=== PATIENT | female | born 1985 | race African-American/Black ===

== ENCOUNTER 2016-09-18 11:07 | Inpatient (IN) | payer MEDICAID ==
[2016-09-18 11:28] LABS: AUTOMATED BASOPHIL 0.8 % (0-2); AUTOMATED EOSINOPHIL 0.8 % (0-5); AUTOMATED LYMPH 29.8 % (17-44); AUTOMATED MONOCYTE 5.4 % (3-10); AUTOMATED NEUTROPHIL 63.2 % (45-76); MPV 9.3 fL (7.4-10.4)
[2016-09-18] MEDS ORDERED: HYDROmorphone 1 MG INJECTION IV ONE ×3 (11:35→15:36)
[2016-09-18] MEDS ORDERED: SODIUM CHLORIDE 0.9% 3 ML FLUSH FLUSH PRN (11:35)
[2016-09-18] MEDS ORDERED: ONDANSETRON HCL 4 MG/2 ML VIAL IV ONE ×2 (11:35→14:58)
--- NOTE | 2016-09-18 11:39 | EDPRACDOC ---
- General Information Chief Complaint: Abdominal Pain Stated Complaint: ABD PAIN & BACK PAIN VOMITING DIARRHEA Time Seen by Provider: 09/18/16 11:30 Information Source: Patient Mode Of Arrival: Car Home Medications: Home Medications No Home Medications 09/18/16 Allergies/Adverse Reactions: Allergies Allergy/AdvReac Type Severity Reaction Status Date / Time No Known Allergies Allergy Verified 09/18/16 11:13 - History of Present Illness Onset: 1 DAY HPI: PT PRESENTS TO ED WITH EPIGASTRIC RUQ PAIN RADIATES TO RIGHT BACK AND SHOULDER STATES MOVES AROUND AND HAS N/V WITH FEW EPISODES OF DIARRHEA. Pain Location: Reports: Epigastric, RUQ, Flank (RT) Pain Context: Reports: Spontaneous Pain Severity: Moderate Pain Quality: Reports: Aching, Sharp, Stabbing Pain Radiation: Reports: Back (RT) Last Menstrual Period: 09/04/2016 : No Blood Type: Unknown Modifying Factors: improves with: Position, Movement, Other (LYING FLAT) Female Associated Signs & Symptoms: Reports: Nausea, Vomiting, Diarrhea Oral Intake: Decreased Urinary Output: Normal ED Past Medical History - History Reviewed Yes Nurses notes reviewed and agree except as marked Travel Outside of [place] in the Last 3 Months?: No No Past Medical History: Yes Patient has no past medical history - Patient Medical History Psychological History: Denies: Depression Systemic History: Denies: Cancer Additional Past Medical History: MORBID OBESITY Surgical History: Denies: Hysterectomy - Social Medical History Smoking Status: Never smoker ETOH: None Substance Abuse: None Lives With: Other Lives In: Home EDM Review of Systems - Review of Systems ROS Negative Except as Marked: Yes All systems reviewed and were negative except as marked Constitutional: No Symptoms Reported. negative: Fever, Chills, Weakness, Fatigue, Loss of Appetite Eyes: No Symptoms Reported. negative: Redness, Blurred Vision, Double Vision, Discharge, Pain, Light Sensitive, Photophobia Ears: No Symptoms Reported. negative: Pain, Hearing Loss, Drainage, Ear Pulling Throat: No Symptoms Reported. negative: Pain, Swelling Nose: No Symptoms Reported. negative: Congestion, Bleeding, Discharge, Injection, Swelling, Deformity, Ecchymosis, Tender, Abrasion, Laceration Mouth: No Symptoms Reported. negative: Pain, Drooling Respiratory: No Symptoms Reported. negative: Cough, Brassy Cough, Barky Cough, Shortness of Breath, Wheezing, Hemoptysis Cardiovascular: No Symptoms Reported. negative: Chest Pain, Palpitations, Syncope, Edema, Orthopnea, PND, Skin Mottling, Cyanosis Gastrointestinal: Diarrhea, Nausea, Pain, Vomiting. negative: Constipation, Formula Intolerance, Melena Genitourinary: No Symptoms Reported. negative: Dysuria, Hematuria, Frequency, Discharge, Bleeding, Testicular Pain, Neurological: No Symptoms Reported. negative: Headache, Dizziness, Seizure, Numbness, Weakness, Speech Difficulty, Gait Difficulty Musculoskeletal: No Symptoms Reported. negative: Neck, Chestwall, Ribs, Back, Shoulder, Arm, Elbow, Forearm, Wrist, Hand, Pelvis, Hip, Femur, Knee, Leg, Ankle , Foot Integumentary: No Symptoms Reported. negative: Itching, Rash, Bruising, Wound Allergic/Immunologic: No Symptoms Reported. negative: Hives, Itching Hematologic: No Symptoms Reported. negative: Lymphadenopathy, Easy Bruising, Easy Bleeding Endocrine: No Symptoms Reported. negative: Weight Gain, Weight Loss Psychiatric: No Symptoms Reported. negative: Anxiety, Depression, Hallucinations, Insomnia, Suicidal - Physical Exam Constitutional: Alert (Awake), No apparent distress Oriented to: Time, Person, Place Last recorded Vital Signs: Last Vital Signs Temp 98.4 F 09/18/16 11:11 Pulse 83 09/18/16 16:55 Resp 20 09/18/16 16:55 BP 143/85 09/18/16 16:55 Pulse Ox 94 09/18/16 16:55 Oxygen Pulse Oxygen Saturation 94 O2 Device Room Air Oxygen Flow Rate Fraction of Inspired Oxygen ( FIO2) - HEENT Head: Normal ( normocephalic) Eye Exam: Normal (PERRL, EOMI, Sclera white) Oropharynx: Normal (Pharynx:Moist without exudate,Gums-no swelling) Tympanic Membrane: Normal ENT EAC: Normal TMJ: Normal Nose: No Symptoms Reported (septum midline) Neck: Normal (FROM, trachea at midline) - Respiratory/Cardiovascular Respiratory: Normal - CTA (BBS clear to auscultation without adventitious sounds ) Cardiovascular: Normal (RRR without murmur, gallop or rub) - GI Auscultation: Normal (NABS) Palpation: Normal (Soft,No rebound or guarding, non distended) Tenderness: Moderate, RUQ, Epigastric Donald's Sign: Negative - Bladder: Normal - Musculoskeletal Back: Normal (Non-Tender) Extremities: Normal (Normal tone, Pulses 2+ No cyanosis or edema, FROM) - Integumentary Skin: Normal, Warm, Dry Lymphatics: Normal (no adenopathy) - Neurologic Memory Impaired: Normal Motor Function: Normal (Normal tone, Pulses 2+ No cyanosis or edema, FROM) Cranial Nerve: Normal (CN II-X11 intact sensation, strength 5/5) Cerebellar: Normal Mood Description: Normal Perception: Normal - Differential Diagnosis Cholecystitis, Cholelithiasis, Colic, Constipation, PUD, Urolithiasis, UTI - Results 09/18/16 11:14 09/18/16 11:14 WBC 6.4 xk/uL (3.8-10.8) 09/18/16 11:14 RBC 4.74 xM/uL (4.20-5.40) 09/18/16 11:14 Hgb 12.0 g/dL (12.0-16.0) 09/18/16 11:14 Hct 36.9 % (36-47) 09/18/16 11:14 MCV 78 fL (81-99) L 09/18/16 11:14 MCH 25.4 pg (27-32) L 09/18/16 11:14 MCHC 32.5 g/dl (33-36) L 09/18/16 11:14 RDW 15.1 % (11.5-14.5) H 09/18/16 11:14 Plt Count 246 xk/uL (130-400) 09/18/16 11:14 MPV 9.3 fL (7.4-10.4) 09/18/16 11:14 Neut % (Auto) 63.2 % (45-76) 09/18/16 11:14 Lymph % (Auto) 29.8 % (17-44) 09/18/16 11:14 Ferry % (Auto) 5.4 % (3-10) 09/18/16 11:14 Eos % (Auto) 0.8 % (0-5) 09/18/16 11:14 Baso % (Auto) 0.8 % (0-2) 09/18/16 11:14 Absolute Neuts (auto) 4.03 xk/uL (1.7-8.2) 09/18/16 11:14 Absolute Lymphs (auto) 1.86 xk/uL (0.65-4.75) 09/18/16 11:14 Sodium 135 mEq/L (137-146) L 09/18/16 11:14 Potassium 4.6 mEq/L (3.5-5.1) 09/18/16 11:14 Chloride 100 mEq/L (98-107) 09/18/16 11:14 Carbon Dioxide 23 mMOL/L (22-33) 09/18/16 11:14 Anion Gap 17 mEq/L (8-16) H 09/18/16 11:14 BUN 10 MG/DL (7-17) 09/18/16 11:14 Creatinine 0.70 MG/DL (0.52-1.04) 09/18/16 11:14 Estimated GFR (MDRD) > 60 mL/min (>=60) 09/18/16 11:14 Glucose 290 MG/DL (70-99) H 09/18/16 11:14 Calculated Osmolality 270 MOs/Kg (270-290) 09/18/16 11:14 Calcium 8.9 MG/DL (8.4-10.2) 09/18/16 11:14 Total Bilirubin 0.4 MG/DL (0.2-1.3) 09/18/16 11:14 AST 33 IU/L (14-36) 09/18/16 11:14 ALT 56 IU/L (9-52) H 09/18/16 11:14 Alkaline Phosphatase 79 IU/L (38-126) 09/18/16 11:14 Total Protein 7.8 G/DL (6.3-8.2) 09/18/16 11:14 Albumin 4.0 G/DL (3.5-5.0) 09/18/16 11:14 Lipase 69 U/L (23-300) 09/18/16 11:24 Urine Color Yellow 09/18/16 12:25 Urine Clarity Clear 09/18/16 12:25 Urine pH 6.0 (5.0-8.0) 09/18/16 12:25 Ur Specific Imperial 1.010 (1.003-1.035) 09/18/16 12:25 Urine Protein Neg (NEG/TRACE) 09/18/16 12:25 Urine Glucose (UA) 3+ (NEGATIVE) H 09/18/16 12:25 Urine Ketones Neg (NEGATIVE) 09/18/16 12:25 Urine Occult Blood Neg (NEG/TRACE) 09/18/16 12:25 Urine Nitrite Neg (NEGATIVE) 09/18/16 12:25 Urine Bilirubin Neg (NEGATIVE) 09/18/16 12:25 Urine Urobilinogen 0.2 MG/DL (0-1) 09/18/16 12:25 Ur Leukocyte Esterase Neg (NEGATIVE) 09/18/16 12:25 Urine RBC 0-2 (0-5) 09/18/16 12:25 Urine WBC 2-5 (0-5) 09/18/16 12:25 Ur Epithelial Cells 1+ 09/18/16 12:25 Urine Bacteria Few (NEG/FEW) 09/18/16 12:25 Urine Test Neg (NEGATIVE) 09/18/16 12:25 Lab Results 09/18/16 09/18/16 09/18/16 12:25 12:25 11:24 WBC RBC Hgb Hct MCV MCH MCHC RDW Plt Count MPV Neut % (Auto) Lymph % (Auto) Ferry % (Auto) Eos % (Auto) Baso % (Auto) Absolute Neuts (auto) Absolute Lymphs (auto) Sodium Potassium Chloride Carbon Dioxide Anion Gap BUN Creatinine Estimated GFR (MDRD) Glucose Calculated Osmolality Calcium Total Bilirubin AST ALT Alkaline Phosphatase Total Protein Albumin Lipase 69 Urine Color Yellow Urine Clarity Clear Urine pH 6.0 Ur Specific Imperial 1.010 Urine Protein Neg Urine Glucose (UA) 3+ H Urine Ketones Neg Urine Occult Blood Neg Urine Nitrite Neg Urine Bilirubin Neg Urine Urobilinogen 0.2 Ur Leukocyte Esterase Neg Urine RBC 0-2 Urine WBC 2-5 Ur Epithelial Cells 1+ Urine Bacteria Few Urine Test Neg 09/18/16 09/18/16 11:14 11:14 WBC 6.4 RBC 4.74 Hgb 12.0 Hct 36.9 MCV 78 L MCH 25.4 L MCHC 32.5 L RDW 15.1 H Plt Count 246 MPV 9.3 Neut % (Auto) 63.2 Lymph % (Auto) 29.8 Ferry % (Auto) 5.4 Eos % (Auto) 0.8 Baso % (Auto) 0.8 Absolute Neuts (auto) 4.03 Absolute Lymphs (auto) 1.86 Sodium 135 L Potassium 4.6 Chloride 100 Carbon Dioxide 23 Anion Gap 17 H BUN 10 Creatinine 0.70 Estimated GFR (MDRD) > 60 Glucose 290 H Calculated Osmolality 270 Calcium 8.9 Total Bilirubin 0.4 AST 33 ALT 56 H Alkaline Phosphatase 79 Total Protein 7.8 Albumin 4.0 Lipase Urine Color Urine Clarity Urine pH Ur Specific Imperial Urine Protein Urine Glucose (UA) Urine Ketones Urine Occult Blood Urine Nitrite Urine Bilirubin Urine Urobilinogen Ur Leukocyte Esterase Urine RBC Urine WBC Ur Epithelial Cells Urine Bacteria Urine Test - Departure Disposition: Home Condition: Stable Final Diagnosis: Acute cholecystitis Cholelithiasis Qualifiers: Cholelithiasis location: gallbladder Cholecystitis presence: with cholecystitis Cholecystitis acuity: acute Biliary obstruction: without biliary obstruction Qualified Code(s): K80.00 - Calculus of gallbladder with acute cholecystitis without obstruction Instructions: Acute Abdominal Pain (ED), Cholecystitis (ED) Education/Counseling Given To: Patient Education/Counseling Given Regarding: Diagnosis, Treatment, Prognosis, Follow Up Referrals: None,No Provider [Primary Care Provider] - One Week Decision to Admit Time: 17:25 Decision to admit date: 09/18/16 Decision to admit: from ED - Physician Consulted Surgery Time Called: 17:25 Provider Called: Santino Ratliff (WILL ADMIT)
[2016-09-18] MEDS ORDERED: NS 1,000 ML IV ONE ×3 (11:43→17:49)
[2016-09-18 11:45] LABS: BLOOD UREA NITROGEN 10 MG/DL (7-17); CALCIUM 8.9 MG/DL (8.4-10.2); CALCULATED OSMOLALITY 270 MOs/Kg (270-290); CHLORIDE 100 mEq/L (98-107); GLUCOSE 290 MG/DL (70-99); SODIUM LEVEL 135 mEq/L (137-146); TOTAL PROTEIN 7.8 G/DL (6.3-8.2)
[2016-09-18] MEDS ORDERED: Pharmacy Review for Metformin - IV Contrast Given SCH (12:00)
[2016-09-18 12:39] LABS: RBC/URINE 0-2 (0-5)
[2016-09-18 12:42] LABS: LEUKOCYTES/URINE NEG (NEGATIVE); NITRITE/URINE NEG (NEGATIVE); URINE OCCULT BLOOD NEG (NEG/TRACE)
--- NOTE | 2016-09-18 15:20 | DIRPT ---
CLINICAL DATA: 31-year-old female with right upper quadrant/epigastric pain radiating into the back accompanied by nausea and vomiting EXAM: CT ABDOMEN AND PELVIS WITH CONTRAST TECHNIQUE: Multidetector CT imaging of the abdomen and pelvis was performed using the standard protocol following bolus administration of intravenous contrast. CONTRAST: 100 mL Isovue 370 COMPARISON: None. FINDINGS: Lower Chest: 5 mm partially calcified granuloma in the left lower lobe. Otherwise, the visualized lower lungs are clear. Visualized cardiac structures are within normal limits for size. Normal distal thoracic esophagus. Abdomen: Unremarkable CT appearance of the stomach, duodenum, spleen, adrenal glands and pancreas. Normal hepatic contour morphology. No discrete lesion. Diffuse low attenuation of the hepatic parenchyma consistent with hepatic steatosis. There is significant circumferential gallbladder wall thickening measuring up to 1.4 cm. No definite radiopaque cholelithiasis. No intra or extrahepatic biliary ductal dilatation. Unremarkable appearance of the bilateral kidneys. No focal solid lesion, hydronephrosis or nephrolithiasis. 1.6 cm simple cyst in the left upper pole. No evidence of obstruction or focal bowel wall thickening. Normal appendix in the right lower quadrant. The terminal ileum is unremarkable. No free fluid or suspicious adenopathy. Pelvis: Unremarkable uterus, at adnexa and bladder. Bones/Soft Tissues: Small fat containing midline ventral hernia superior to the umbilicus. No acute fracture or aggressive appearing lytic or blastic osseous lesion. Vascular: No significant atherosclerotic vascular disease, aneurysmal dilatation or acute abnormality. IMPRESSION: 1. Diffuse gallbladder wall thickening without definitive radiopaque cholelithiasis. Consider further evaluation with right upper quadrant ultrasound to evaluate for cholelithiasis and cholecystitis. 2. Hepatic steatosis. 3. Small omental fat containing midline ventral abdominal hernia superior to the umbilicus. 4. Small calcified granuloma in the left lower lobe. 5. Small left renal cyst. Electronically Signed By: Riley Galarza M.D. On: 09/18/2016 15:17
--- NOTE | 2016-09-18 17:05 | DIRPT ---
CLINICAL DATA: Abdominal pain since last night. EXAM: US ABDOMEN LIMITED - RIGHT UPPER QUADRANT COMPARISON: CT of the abdomen dated 09/18/2016 FINDINGS: Gallbladder: There are multiple mobile shadowing gallbladder calculi, the largest of which measures 1.2 cm. There is a trace of pericholecystic fluid. There is gallbladder wall thickening to 4.5 mm. Sonographic Donald's sign was reported as negative. Common bile duct: Diameter: 4.2 mm. Liver: No focal lesion identified. There is diffusely increased echogenicity of the liver, usually seen with hepatic steatosis. IMPRESSION: Cholelithiasis with associated signs of acute cholecystitis, such as gallbladder wall thickening and small amount of pericholecystic fluid. Hepatic steatosis. Electronically Signed By: Aniket Quan M.D. On: 09/18/2016 17:02
[2016-09-18] MEDS ORDERED: CEFOXITIN 2 GM in D5W 100 ML IV ONE (17:49)
[2016-09-18] MEDS ORDERED: SIMETHICONE 80 MG TAB PO PRN (17:51)
[2016-09-18] MEDS ORDERED: ONDANSETRON HCL 4 MG/2 ML VIAL IV PRN (17:51)
[2016-09-18] MEDS ORDERED: ACETAMINOPHEN 325 MG/TAB TABLET PO PRN (17:51)
[2016-09-18] MEDS ORDERED: MORPHINE 2 MG/ML INJECTION IV PRN ×4 (17:52)
[2016-09-18] MEDS ORDERED: GLUCOSE (ORAL GEL) 15 GM TUBE PO PRN ×2 (17:52→17:56)
[2016-09-18] MEDS ORDERED: GLUCAGON 1 MG VIAL SQ PRN ×2 (17:52→17:56)
[2016-09-18] MEDS ORDERED: DEXTROSE 25 GM/50 ML PFS IV PRN ×2 (17:52→17:56)
--- NOTE | 2016-09-18 18:13 | HISTPHYS ---
- Chief Complaint RUQ pain - History of Present Illness 31 YO Female who presented with increased abdominal pain. No alleviating factors noted. this was accompanied by N/V. The pain was an 8/10 and stabbing. Came top ER and work-up revealed acute cholecystitis. - Medical History Cardiac History: Reports: No Significant History Respiratory History: Reports: No Significant History GI/ History: Reports: No Significant History Musculoskeletal History: Reports: No Significant History Systemic History: Reports: No Significant History. Denies: Cancer Neurological History: Reports: No Significant History Psychological History: Denies: Depression - Surgical History Denies: Hysterectomy - Medictions/Allergies Allergies No Known Allergies Allergy (Verified 09/18/16 11:13) Current Medication List: Reviewed Home Medications No Home Medications 09/18/16 - Family History Reports: Hypertension - Social History Travel Outside of [place] in the Last 3 Months?: No Smoking Status: Never smoker Social History: Denies: Amphetamine Use, Alcohol Use, Barbiturate Use, Benzodiazipine Use, Cocaine Use, Heroin Use, Marijuana Use, Methadone Use, MDMA (Ecstasy) Use, Substance Use Disorder - Review of Systems Constitutional: Loss of Appetite. negative: Chills, Fever Eyes: negative: Photophobia, Vision Loss Ears: negative: Hearing Loss, Tinnitus Nose: negative: Discharge, Deformity Throat/Neck: negative: Pain, Masses, Hoarseness Respiratory: negative: Cough, Hemoptysis, Shortness of Breath, Wheezing Cardiovascular: negative: Chest Pain, Orthopnea, Palpitations Gastrointestinal: Nausea, Vomiting, Abdominal Pain. negative: Diarrhea, Melena , Hematochezia Genitourinary: negative: Dysuria, Hematuria Neurological: negative: Dizziness, Headache, Seizure Musculoskeletal:: negative: Joint Pain, Muscle Pain Integumentary: negative: Itching, Rash, Wound Allergic/Immunologic: negative: Hives, Itching Hematologic: negative: Lymphadenopathy, Easy Bruising, Easy Bleeding Psychiatric: negative: Anxiety, Depression - Physical Exam Vital Signs: Initial Vitals Temperature 98.4 F 09/18/16 11:11 Pulse Rate 87 09/18/16 11:11 Respiratory Rate 20 09/18/16 11:11 Blood Pressure 183/86 H 09/18/16 11:11 Pulse Oxygen Saturation 96 09/18/16 11:11 Constitutional: No apparent distress, Alert. negative: Confused, Distress Oriented to: Time, Person, Place - HEENT Head: Normal. negative: Laceration, Swelling Eye: negative: Pale Conjunctiva, Scleral Icterus Nose: negative: Discharge, Deformity Respiratory: negative: Rales, Rhonchi, Wheezes Cardiovascular: Normal. negative: Bradycardia, Tachycardia, Irregular - GI Auscultation: Normal Palpation: Normal. negative: Enlarged liver, Fluid Wave Tenderness: Moderate, RUQ, Epigastric. negative: Guarding, Rebound, Rigidity Donald's Sign: Positive - Musculoskeletal Back: negative: Abrasion, Ecchymosis, CVA Tenderness Extremities: negative: Calf Tenderness, Clubbing, Cyanosis, Edema - Integumentary Skin: Warm Lymphatics: negative: Adenopathy, Lymphangitis - Neurologic Cranial Nerve: Normal (CN II-XII intact sensation, strength 5/5) - Assessment/Plan (1) Epigastric abdominal pain R10.13 - EPIGASTRIC PAIN Acute Present on Admission: Yes (2) RUQ abdominal pain R10.11 - RIGHT UPPER QUADRANT PAIN Acute Present on Admission: Yes (3) Acute cholecystitis K81.0 - ACUTE CHOLECYSTITIS Acute Present on Admission: Yes (4) Cholelithiasis K80.20 - CALCULUS OF GALLBLADDER W/O CHOLECYSTITIS W/O OBSTRUCTION Acute Present on Admission: Yes gallbladder with cholecystitis C acute C without biliary obstruction K80.00 - Calculus of gallbladder with acute cholecystitis without obstruction (5) Hyperglycemia R73.9 - HYPERGLYCEMIA, UNSPECIFIED Acute Present on Admission: Yes Plan: Will need admission for IV antibiotics. She will need to have this process cool down prior to going ahead with surgery. Will also obtain Medical consult to further evaluate her hyperglycemia
[2016-09-18] MEDS: SODIUM CHLORIDE 0.9% 3 ML FLUSH FLUSH SCH (19:02)
[2016-09-18 19:23] VITALS: BMI 46.2
[2016-09-18] MEDS ORDERED: Vaccine Screening Complete SCH (20:00)
--- NOTE | 2016-09-18 20:05 | HIMCONSMED ---
Consultation Date: 09/18/16 Requesting Physician: Santino Ratliff Consulting Doctor: Flo Guan Consult Reason: Medical Management ATTENDING: Dr. Ratliff PRIMARY CARE PROVIDER: Dr. Lewis HPI: The patient is a delightful 31 yo woman who presents with abdominal pain. Onset: last night. Duration: intermittent. Location: Right abdomen. Radiation: to back. Character: 10/10. Cramping pain then to dull ache. Alleviated by: Nothing. Exacerbated by: Nothing. Associated Symptoms: Nausea and vomiting. Diarrhea. Abdominal pain. No constipation or bloody stool. No fever or chills. Has noticed polyuria and polydipsia. Treatments: none at home except usual medications. Chief Complaint: abdominal pain - Past Medical and Surgical History Patient reports no significant medial problems. Allergies No Known Allergies Allergy (Verified 09/18/16 11:13) Home Medications No Home Medications 09/18/16 - Social History Travel Outside of [place] in the Last 3 Months?: No Smoking Status: Never smoker Social History: Denies: Alcohol Use, Substance Use Disorder - Review of Systems GENERAL: No Fever, chills, or diaphoresis. Positive for fatigue/malaise. HEENT: No nasal discharge or bleeding. No throat pain or swelling. No eye pain or eye redness. RESPIRATORY: No cough, wheezing, or shortness of breath. CARDIOVASCULAR: No chest pain or palpitations. GI: Nausea and vomiting. Diarrhea. Abdominal pain. No constipation or bloody stool. NEUROLOGICAL: No headache or focal weakness. INTEGUMENT: no rashes, itching, or lesions. LYMPHATIC SYSTEM: no lymph node swelling or pain. MUSCULOSKELETAL: no pain or joint swelling. GENITOURINARY: No dysuria or hematuria. ENDOCRINE: Has noticed polyuria and polydipsia. HEME: No chronic anemia, bleeding, or easy bruising. - Physical Exam Vital Signs: Initial Vitals Temperature 98.4 F 09/18/16 11:11 Pulse Rate 87 09/18/16 11:11 Respiratory Rate 20 09/18/16 11:11 Blood Pressure 183/86 H 09/18/16 11:11 Pulse Oxygen Saturation 96 09/18/16 11:11 Vital Signs - 24 hr 09/18/16 09/18/16 09/18/16 11:11 13:46 16:55 Temperature 98.4 F Pulse Rate 87 90 83 Respiratory 20 18 20 Rate Blood Pressure 183/86 H 164/77 143/85 Pulse Oxygen 96 95 94 Saturation 09/18/16 09/18/16 18:39 18:55 Temperature 96.9 F L Pulse Rate 84 77 Respiratory 18 20 Rate Blood Pressure 176/94 162/98 Pulse Oxygen 96 92 Saturation Weight: 122 kg Height: 5 feet 4 inches BMI: 46.2 - Other Exam Other Exam Findings: GENERAL: Ill-appearing, well nourished, in acute distress. HEENT: Normocephalic, atraumatic; pupils equal and round. Nares patent, without discharge or bleeding. No oropharyngeal lesions or erythema. Mucous membranes are dry. NECK: is supple, no masses, trachea midline. Acanthosis nigricans noted. RESPIRATORY: Clear to auscultation bilaterally. Chest wall movements are symmetric. No use of accessory muscles to breathe. No wheezing, rales, rhonchi. CARDIOVASCULAR: Normal S1, S2. No murmurs, rubs, or gallops. PMI non-displaced. Carotids: no carotid bruits. No bradycardia or tachycardia. DP pulses 2+ bilaterally. GI: soft, non-distended, normal active bowel sounds. No hepatosplenomegaly. Tenderness in right upper and lower quadrants. INTEGUMENT: Clean, dry, and intact. No rashes. No lesions. MUSCULOSKELETAL: Moving all extremities. No cyanosis. No clubbing. Edema: none bilaterally. NEUROLOGICAL: Cranial nerves 2-12 grossly intact. Motor 5/5 throughout. Reflexes : 2+ bilaterally. Babinski: toes downgoing bilaterally. Intact Finger to nose. Sensory grossly intact to light touch. Intact rapid alternating movements bilaterally. No pronator drift. PSYCHIATRIC: Fully oriented. Normal and appropriate affect. LYMPHATIC: No cervical lymphadenopathy. No supraclavicular lymphadenopathy. - Lab Results Laboratory Results - last 24 hr 09/18/16 09/18/16 09/18/16 11:14 11:14 11:14 WBC 6.4 RBC 4.74 Hgb 12.0 Hct 36.9 MCV 78 L MCH 25.4 L MCHC 32.5 L RDW 15.1 H Plt Count 246 MPV 9.3 Neut % (Auto) 63.2 Lymph % (Auto) 29.8 Parker % (Auto) 5.4 Eos % (Auto) 0.8 Baso % (Auto) 0.8 Absolute Neuts (auto) 4.03 Absolute Lymphs (auto) 1.86 Sodium 135 L Potassium 4.6 Chloride 100 Carbon Dioxide 23 Anion Gap 17 H BUN 10 Creatinine 0.70 Estimated GFR (MDRD) > 60 Glucose 290 H Hemoglobin A1c 7.8 H Calculated Osmolality 270 Calcium 8.9 Total Bilirubin 0.4 AST 33 ALT 56 H Alkaline Phosphatase 79 Total Protein 7.8 Albumin 4.0 Lipase Urine Color Urine Clarity Urine pH Ur Specific [place] Urine Protein Urine Glucose (UA) Urine Ketones Urine Occult Blood Urine Nitrite Urine Bilirubin Urine Urobilinogen Ur Leukocyte Esterase Urine RBC Urine WBC Ur Epithelial Cells Urine Bacteria Urine Test 09/18/16 09/18/16 09/18/16 11:24 12:25 12:25 WBC RBC Hgb Hct MCV MCH MCHC RDW Plt Count MPV Neut % (Auto) Lymph % (Auto) Parker % (Auto) Eos % (Auto) Baso % (Auto) Absolute Neuts (auto) Absolute Lymphs (auto) Sodium Potassium Chloride Carbon Dioxide Anion Gap BUN Creatinine Estimated GFR (MDRD) Glucose Hemoglobin A1c Calculated Osmolality Calcium Total Bilirubin AST ALT Alkaline Phosphatase Total Protein Albumin Lipase 69 Urine Color Yellow Urine Clarity Clear Urine pH 6.0 Ur Specific [place] 1.010 Urine Protein Neg Urine Glucose (UA) 3+ H Urine Ketones Neg Urine Occult Blood Neg Urine Nitrite Neg Urine Bilirubin Neg Urine Urobilinogen 0.2 Ur Leukocyte Esterase Neg Urine RBC 0-2 Urine WBC 2-5 Ur Epithelial Cells 1+ Urine Bacteria Few Urine Test Neg - Diagnostic Findings CT abdomen/pelvis, viewed personally: EXAM: CT ABDOMEN AND PELVIS WITH CONTRAST TECHNIQUE: Multidetector CT imaging of the abdomen and pelvis was performed using the standard protocol following bolus administration of intravenous contrast. CONTRAST: 100 mL Isovue 370 COMPARISON: None. FINDINGS: Lower Chest: 5 mm partially calcified granuloma in the left lower lobe. Otherwise, the visualized lower lungs are clear. Visualized cardiac structures are within normal limits for size. Normal distal thoracic esophagus. Abdomen: Unremarkable CT appearance of the stomach, duodenum, spleen, adrenal glands and pancreas. Normal hepatic contour morphology. No discrete lesion. Diffuse low attenuation of the hepatic parenchyma consistent with hepatic steatosis. There is significant circumferential gallbladder wall thickening measuring up to 1.4 cm. No definite radiopaque cholelithiasis. No intra or extrahepatic biliary ductal dilatation. Unremarkable appearance of the bilateral kidneys. No focal solid lesion, hydronephrosis or nephrolithiasis. 1.6 cm simple cyst in the left upper pole. No evidence of obstruction or focal bowel wall thickening. Normal appendix in the right lower quadrant. The terminal ileum is unremarkable. No free fluid or suspicious adenopathy. Pelvis: Unremarkable uterus, at adnexa and bladder. Bones/Soft Tissues: Small fat containing midline ventral hernia superior to the umbilicus. No acute fracture or aggressive appearing lytic or blastic osseous lesion. Vascular: No significant atherosclerotic vascular disease, aneurysmal dilatation or acute abnormality. IMPRESSION: 1. Diffuse gallbladder wall thickening without definitive radiopaque cholelithiasis. Consider further evaluation with right upper quadrant ultrasound to evaluate for cholelithiasis and cholecystitis. 2. Hepatic steatosis. 3. Small omental fat containing midline ventral abdominal hernia superior to the umbilicus. 4. Small calcified granuloma in the left lower lobe. 5. Small left renal cyst. Ultrasound abdomen: EXAM: US ABDOMEN LIMITED - RIGHT UPPER QUADRANT COMPARISON: CT of the abdomen dated 09/18/2016 FINDINGS: Gallbladder: There are multiple mobile shadowing gallbladder calculi, the largest of which measures 1.2 cm. There is a trace of pericholecystic fluid. There is gallbladder wall thickening to 4.5 mm. Sonographic Donald's sign was reported as negative. Common bile duct: Diameter: 4.2 mm. Liver: No focal lesion identified. There is diffusely increased echogenicity of the liver, usually seen with hepatic steatosis. IMPRESSION: Cholelithiasis with associated signs of acute cholecystitis, such as gallbladder wall thickening and small amount of pericholecystic fluid. Hepatic steatosis. - Assessment (1) Acute cholecystitis K81.0 - ACUTE CHOLECYSTITIS Acute Present on Admission: Yes Minimal risk for surgery due primarily to new onset diabetes. Plan: Agree with plan to move forward with surgery. Management per Dr. Ratliff. 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 Plan: Teaching regarding diagnosis. Demonstrate use of glucometer then allow patient to obtain sample herself. Sliding scale insulin and FSBS check q 6hrs. After she is recovering well from cholecystectomy, consider starting metformin. (3) Elevated blood pressure reading R03.0 - ELEVATED BLOOD-PRESSURE READING, W/O DIAGNOSIS OF HTN Acute Present on Admission: Yes May be due to pain. Plan: Monitor blood pressures. Follow up with a primary care provider. (4) RUQ abdominal pain R10.11 - RIGHT UPPER QUADRANT PAIN Acute Present on Admission: Yes Plan: IV pain medication.
[2016-09-18] MEDS: REGULAR INSULIN 100 UNITS/ML - 3 ML VIAL SQ SCH ×2 (20:25→22:52)
[2016-09-18] MEDS: ENOXAPARIN 60 MG/0.6 ML PFS SQ SCH (20:29)
[2016-09-18] MEDS: CEFOXITIN 1 GM in D5W 100 ML IV SCH (22:57)
[2016-09-18] MEDS ORDERED: CHAPSTICK LIP BALM ONE (23:00)
[2016-09-19] MEDS ORDERED: GUAIFEN 100 MG-DEXTROMETH 10 MG PER 5 ML PO PRN (05:11)
[2016-09-19] MEDS ORDERED: PROMETHAZINE 25 MG/ML VIAL IV PRN (05:11)
[2016-09-19] MEDS ORDERED: BENZONATATE 100 MG PERLES PO PRN (05:11)
[2016-09-19] MEDS: SODIUM CHLORIDE 0.9% 3 ML FLUSH FLUSH SCH ×2 (05:41→16:48)
[2016-09-19] MEDS: CEFOXITIN 1 GM in D5W 100 ML IV SCH ×3 (05:41→16:48)
[2016-09-19] MEDS: PANTOPRAZOLE 40 MG TAB PO SCH (05:41)
[2016-09-19] MEDS: REGULAR INSULIN 100 UNITS/ML - 3 ML VIAL SQ SCH ×3 (05:42→16:47)
[2016-09-19 07:24] LABS: MPV 9.1 fL (7.4-10.4)
[2016-09-19 07:40] LABS: BLOOD UREA NITROGEN 7 MG/DL (7-17); CALCIUM 8.7 MG/DL (8.4-10.2); CALCULATED OSMOLALITY 266 MOs/Kg (270-290); CHLORIDE 102 mEq/L (98-107); GLUCOSE 172 MG/DL (70-99); SODIUM LEVEL 137 mEq/L (137-146)
--- NOTE | 2016-09-19 12:29 | GENMEDPROG ---
Subjective Note: The patient is complaining of a headache this afternoon. This may be caffeine withdrawal as she is unable to drink soda because of her abdominal pain. She is aware of her new diagnosis of diabetes. She has multiple questions about that. She also has questions about all of the blood work. Current Medication List: Reviewed Currently: Reports: Abdominal Pain, Ambulating (In room). Denies: DORANTES, SOB, Fever/Chills DVT Prophylaxis: Yes - Physical Examination Vital Signs and I&O: Last Vital Signs Temp 97.9 F 09/19/16 06:00 Pulse 78 09/19/16 06:00 Resp 18 09/19/16 06:00 BP 142/78 09/19/16 06:00 Pulse Ox 95 09/19/16 06:00 Oxygen Pulse Oxygen Saturation 95 O2 Device Room Air Oxygen Flow Rate Fraction of Inspired Oxygen ( FIO2) Intake & Output 09/16/16 09/17/16 09/18/16 09/19/16 23:59 23:59 23:59 23:59 Intake Total 999 1334 Balance 999 1334 Patient's weight 122.073 kg General: Alert, Oriented x3, Cooperative, No acute distress HEENT: negative: Anicteric Sclera Neck: Normal Trachea alignment, Normal inspection Lymphatics: Normal Respiratory: Normal - CTA Cardiovascular: Regular rate and rhythm, Good Pedal Pulses. negative: LE Edema GI: Normal bowel sounds, Obese, Tenderness (Mid epigastric and right upper quadrant) Extremities/Musculoskeletal: Motor 5/5 throughout. negative: Edema Skin: Warm,Dry and Intact Neurological: Normal Steady Gait, Normal speech Psych/Mental Status: Appropriate, Normal Affect, Cooperative - Assessment (1) Acute cholecystitis Acute K81.0 - ACUTE CHOLECYSTITIS Comment/Plan: Plan is for removal of her gallbladder tomorrow. (2) Type 2 diabetes mellitus with hyperglycemia Acute E11.65 - TYPE 2 DIABETES MELLITUS WITH HYPERGLYCEMIA Qualifiers: Diabetes mellitus fpc insulin use: D Comment/Plan: New diagnosis this admission. Hemoglobin A1c equals 7.8. She may not need medication if she has some lifestyle changes but should probably start metformin after her surgery. Sliding-scale insulin and q.6 hours fingersticks. Teaching material has been given to the patient on diabetes. (3) Elevated blood pressure reading Acute R03.0 - ELEVATED BLOOD-PRESSURE READING, W/O DIAGNOSIS OF HTN Comment/ Plan: Blood pressure is better now her pain is controlled. Will need to follow. She should be on an Leonel inhibitor for renal protection given her history of diabetes. Can start after her surgery (4) RUQ abdominal pain Acute R10.11 - RIGHT UPPER QUADRANT PAIN Comment/Plan: IV pain medication until surgery Case Care Discussed with: Patient, Family Education/Counseling Given To: Patient, Family Member Education/Counseling Given Regarding: Diagnosis, Treatment, Prognosis Total Time: 30 minutes Critical Care: No Couseling Time (>50% in counseling/coordination): Yes Code: 00701 (12+)
--- NOTE | 2016-09-19 16:43 | PCM.SURGRO ---
- Subjective Patient: Reports: No new complaints, Pain is less, Flatus, No Bowel Movement - Objective / Physical Exam Vital Signs: Temperature: 98.2 F (09/19/16 14:30) HR: 84 (09/19/16 14:30)RR: 18 (09/19/16 14: 30) BP: 165/70 (09/19/16 14:30)Pulse Ox: 96 (09/19/16 14:30) General: Alert, Oriented x3, Cooperative HEENT: PERRLA, EOMI, Anicteric Sclera Respiratory: Normal - CTA. negative: Rales, Rhonchi Cardiovascular: Regular rate and rhythm, No Gallops,Rubs/Murmurs Gastrointestinal: Soft, Tender. negative: Guarding, Rigid Back: negative: Ecchymosis, CVA Tenderness Extremities: negative: Edema, Clubbing, Cyanosis Psych/Mental Status: Appropriate, Normal Affect, Cooperative Skin: Warm,Dry and Intact, No rashes, No breakdown Laboratory/Diagnostics Reviewed: 09/19/16 07:00 09/19/16 07:00 Laboratory Results - last 24 hr 09/18/16 09/19/16 09/19/16 22:49 05:34 07:00 WBC RBC Hgb Hct MCV MCH MCHC RDW Plt Count MPV Sodium 137 Potassium 4.4 Chloride 102 Carbon Dioxide 29 Anion Gap 10 BUN 7 Creatinine 0.70 Estimated GFR (MDRD) > 60 Glucose 172 H POC Capillary Glucose 123 H 142 H Calculated Osmolality 266 L Calcium 8.7 09/19/16 09/19/16 09/19/16 07:00 11:14 16:18 WBC 5.5 RBC 4.22 Hgb 10.5 L D Hct 32.7 L MCV 78 L MCH 24.9 L MCHC 32.1 L RDW 14.8 H Plt Count 219 MPV 9.1 Sodium Potassium Chloride Carbon Dioxide Anion Gap BUN Creatinine Estimated GFR (MDRD) Glucose POC Capillary Glucose 202 H 140 H Calculated Osmolality Calcium - Assessment and Plan (1) Epigastric abdominal pain Acute R10.13 - EPIGASTRIC PAIN Present on Admission: Yes (2) RUQ abdominal pain Acute R10.11 - RIGHT UPPER QUADRANT PAIN Present on Admission: Yes Plan: IV pain medication. (3) Acute cholecystitis Acute K81.0 - ACUTE CHOLECYSTITIS Present on Admission: Yes (4) Cholelithiasis Acute K80.20 - CALCULUS OF GALLBLADDER W/O CHOLECYSTITIS W/O OBSTRUCTION Present on Admission: Yes gallbladder with cholecystitis C acute C without biliary obstruction K80.00 - Calculus of gallbladder with acute cholecystitis without obstruction (5) Hyperglycemia Acute R73.9 - HYPERGLYCEMIA, UNSPECIFIED Present on Admission: Yes Plan: Cont with glucose monitoring, Plan for LC IOC tomorrow. Risks of bleeding, infection, bile leak and duct injury were discussed. All her questions were answered.
[2016-09-19] MEDS: ENOXAPARIN 60 MG/0.6 ML PFS SQ SCH (16:47)
[2016-09-19] MEDS ORDERED: ENALAPRILAT 1.25 MG/ML VIAL IV PRN (20:13)
[2016-09-19] MEDS ORDERED: NS 500 ML IV ONE (20:34)
[2016-09-20] MEDS: CEFOXITIN 1 GM in D5W 100 ML IV SCH ×3 (00:18→18:05)
[2016-09-20] MEDS: REGULAR INSULIN 100 UNITS/ML - 3 ML VIAL SQ SCH ×3 (01:26→13:30)
[2016-09-20] MEDS: SODIUM CHLORIDE 0.9% 3 ML FLUSH FLUSH SCH (05:05)
[2016-09-20] MEDS: PANTOPRAZOLE 40 MG TAB PO SCH (05:07)
[2016-09-20] MEDS ORDERED: ISOVUE-300 (61%) 50 ML ONE (08:38)
[2016-09-20] MEDS ORDERED: BUPIVACAINE 0.25% 30 ML VIAL ONE (08:38)
--- NOTE | 2016-09-20 08:57 | HIM.ANES ---
Anesthesia Evaluation & Plan Diagnoses: acute cholecystitis Consented Procedure: lap nika Surgeon:: Santino Ratliff - Focused Review of Systems No Past Medical History: Yes Patient has no past medical history Now: No Cardiac History: No: Hx Hypertension, Hx Cardiac Disorders EKG Rhythm: Sinus Rhythm HEENT: No: Loose/Decaying Teeth Respiratory: No: Hx Asthma Gastrointestinal: Yes: Hx Liver disease (steatosis) No: Hx Gastroesophageal Reflux Disease, Hx Gastrointestinal Disorders Genitourinary: Yes: Hx Renal Disease Neurological/Musculoskeletal: No: Hx Neurological Disorders Psychological: No Hx Depression, No Hx Mental/Emotional Disorders Smoking Status: Never smoker Past Social History: Denies: Amphetamine Use, Alcohol Use, Barbiturate Use, Benzodiazipine Use, Cocaine Use, Heroin Use, Marijuana Use, Methadone Use, MDMA (Ecstasy) Use, Substance Use Disorder Alcohol use: None - Focused Physical Exam NPO since: midnight Mallampati: Class I Thyromental Distance: Greater than 3 Neck: Full Range of Motion Dental: Normal - no significant findings Cardiovascular/Chest: Normal (RRR no mumurs or rubs.) Respiratory: Lungs clear. negative: Rhonchi, Wheezing Any problems with anesthesia, including nausea and vomiting?: No Any relatives with a history of Malignant Hyperthermia?: No Does patient have a history of Malignant Hyperthermia?: No Beta Shae given (if appropriate): N/A Does the patient have a history of Motion Sickness-: Yes Other: Problem List Problem Status Onset Acute cholecystitis Acute Cholelithiasis Acute Elevated blood pressure reading Acute Epigastric abdominal pain Acute Hyperglycemia Acute RUQ abdominal pain Acute Type 2 diabetes mellitus with hyperglycemia Acute PT/PTT/INR/ Urine Test Neg (NEGATIVE) 09/18/16 12:25 CBC/BMP/Other 09/19/16 07:00 09/19/16 07:00 Allergies Allergy/AdvReac Type Severity Reaction Status Date / Time No Known Allergies Allergy Verified 09/18/16 11:13 Home Medications Medication Instructions Recorded Last Taken Type No Home Medications 09/18/16 Unknown History Height and Weight Patient's height 5 ft 4 in Patient's weight 122.073 kg Weight (Calculated Kilograms) 122.073 BMI 46.2 Vital Signs Temperature 98.5 F 09/20/16 08:17 Pulse Rate 82 09/20/16 08:17 Respiratory Rate 18 09/20/16 08:17 Blood Pressure 138/83 01/23/17 08:17 Pulse Oxygen Saturation 100 09/20/16 08:17 METS - Level of Activity: Climbing stairs(1 flight),walking level ground, running short distance - Anesthetic Plan Anesthesia Type: General ASA Class: 3 -: I have examined this patient and reviewed the medical record. The patient has been assessed prior to anesthesia. Risks and benefits of anesthesia and anesthetic technique options have been discussed and all questions answered. The patient accepts the risk and desires me to proceed with the planned anesthetic.
[2016-09-20] MEDS ORDERED: hydrALAZINE 20 MG/ML VIAL IV PRN (09:01)
[2016-09-20] MEDS ORDERED: HYDROmorphone 1 MG INJECTION IV PRN ×2 (09:01)
[2016-09-20] MEDS ORDERED: LABETALOL 20 MG/4 ML SYRINGE IV PRN (09:01)
[2016-09-20] MEDS ORDERED: FENTANYL 100 MCG/2 ML VIAL IV PRN (09:01)
[2016-09-20] MEDS ORDERED: SCOPOLAMINE TRANSDERMAL PATCH TOP ONE ×2 (09:01→09:06)
[2016-09-20] MEDS ORDERED: METOCLOPRAMIDE 10 MG/2 ML VIAL IV ONE (09:01)
[2016-09-20] MEDS ORDERED: MEPERIDINE 25 MG/ML TUBEX IV PRN (09:01)
[2016-09-20] MEDS ORDERED: ONDANSETRON HCL 4 MG ODT TAB PO PRN (09:01)
[2016-09-20] MEDS ORDERED: ONDANSETRON HCL 4 MG/2 ML VIAL IV PRN (09:01)
[2016-09-20] MEDS ORDERED: METOCLOPRAMIDE 10 MG/2 ML VIAL ONE (09:06)
[2016-09-20] MEDS ORDERED: FENTANYL 250 MCG/5 ML VIAL IV ONE (10:00)
[2016-09-20] MEDS ORDERED: ONDANSETRON HCL 4 MG/2 ML VIAL IV ONE (10:00)
[2016-09-20] MEDS ORDERED: MIDAZOLAM 2 MG/2 ML VIAL IV ONE (10:00)
[2016-09-20] MEDS ORDERED: LIDOCAINE 100 MG PFS IV ONE (10:00)
[2016-09-20] MEDS ORDERED: NEOSTIGMINE 1 MG/1 ML (1:1000) INJ 10 ML MDV IM ONE (10:00)
[2016-09-20] MEDS ORDERED: ROCURONIUM 50 MG/5 ML VIAL IV ONE (10:00)
[2016-09-20] MEDS ORDERED: DEXAMETHASONE 4 MG/ML VIAL IV ONE (10:00)
[2016-09-20] MEDS ORDERED: GLYCOPYRROLATE 1 MG VIAL IM ONE (10:00)
[2016-09-20] MEDS ORDERED: SUCCINYLCHOLINE 20 MG/1 ML INJ 10 ML MDV IV ONE (10:00)
[2016-09-20] MEDS ORDERED: PROPOFOL 200 MG/20 ML VIAL IV ONE (10:00)
--- NOTE | 2016-09-20 11:05 | HIMOPRPT ---
PROCEDURE: DATE OF PROCEDURE: 09/20/16 PREOPERATIVE DIAGNOSES: Cholecystitis and cholelithiasis. POSTOPERATIVE DIAGNOSES: Cholecystitis and cholelithiasis. PROCEDURE: Laparoscopic cholecystectomy with intraoperative cholangiogram. SURGEON: Santino Ratliff MD SYSTEMS DEVELOPMENT MANAGER: Ariel Landa MD ANESTHESIA: General. COMPLICATIONS: None. ESTIMATED BLOOD LOSS: [] OPERATIVE NOTE: The patient was placed supine on the operative table. After induction of general anesthesia and endotracheal intubation, the patient was prepped and draped in the usual fashion. Time-out was taken. The patient was re- identified and the procedure was verified, and was given pre-operative antibiotics. An infraumbilical incision was made and a 5-mm Optiview trocar was placed without difficulties. The abdomen was insufflated with CO2 until a pressure of 15 mm HG was achieved. The camera was introduced and we inspected the abdominal cavity. The liver was smooth without any nodularities or masses. At this point, we placed two 5 mm ports in the right upper quadrant under direct visualization and an 11-mm port in the epigastric region. We were able to place a grasper on the dome, the other on the infundibulum of the gallbladder. The [place] of [place] was dissected using lateral retraction of the infundibulum thus exposing this critical angle between the cystic duct and CBD. The peritoneal attachment around the infundibulum of the gallbladder to the liver was dissected free using electrocautery. Thus giving a partial retrograde dissection. This allowed the visualization of the cystic duct and artery as they entered the gallbladder. Having developed this Critical View of Safety at the triangle of [place] we proceeded with our cholangiogram. A Lares clamp was placed across the body of the gallbladder, the tip of the catheter was inserted into the infundibulum. We then were able to flush this. Using the C -arm fluoroscopy unit, we performed a cholangiogram. In real time, we saw the passage of contrast throughout the biliary tree, common hepatic, common bile duct, and emptying readily into the duodenum. No filling defects were noted. This was a normal cholangiogram. At this point, the catheter was removed. Clips were placed on the cystic duct and artery and these structures were divided. A PDS loop was placed around the cystic duct stump. We then removed the gallbladder off the liver bed using electrocautery. The liver bed remained completely hemostatic. We removed the gallbladder and placed it into a laparoscopic retrieval bag. We irrigated the operative field and suctioned out the irrigation. We then removed the ports allowing the CO2 to escape. The patient then had the large port site closed at the level of the fascia using #0- Vicryl sutures. The wounds were all irrigated and infiltrated with 0.25% Marcaine. The skin edges were approximated using 4-0 Monocryl and Dermabond. The patient tolerated this well. Sponge, needle, and instrument counts were correct.
[2016-09-20] MEDS ORDERED: FENTANYL 100 MCG/2 ML VIAL ONE (11:40)
[2016-09-20] MEDS: FENTANYL 100 MCG/2 ML VIAL IV PRN ×2 (11:44→12:01)
--- NOTE | 2016-09-20 12:03 | DIRPT ---
CLINICAL DATA: Acute calculus cholecystitis EXAM: INTRAOPERATIVE CHOLANGIOGRAM TECHNIQUE: Cholangiographic images from the C-arm fluoroscopic device were submitted for interpretation post-operatively. Please see the procedural report for the amount of contrast and the fluoroscopy time utilized. COMPARISON: 09/18/2016 FINDINGS: Intraoperative cholangiogram performed during the laparoscopic cholecystectomy. The cystic duct, common hepatic duct, and common bile duct are patent. No dilatation or obstruction. No filling defect. Contrast drains into the duodenum. IMPRESSION: Patent biliary system. Electronically Signed By: Jade Heredia M.D. On: 09/20/2016 12:00
--- NOTE | 2016-09-20 12:23 | GENMEDPROG ---
Currently: Reports: Abdominal Pain, Ambulating (In room). Denies: DORANTES, SOB, Fever/Chills DVT Prophylaxis: Yes - Physical Examination Vital Signs and I&O: Last Vital Signs Temp 97.3 F L 09/20/16 12:01 Pulse 84 09/20/16 12:01 Resp 24 09/20/16 12:01 BP 166/91 09/20/16 12:01 Pulse Ox 100 09/20/16 12:01 Oxygen Pulse Oxygen Saturation 100 O2 Device Nasal Cannula Oxygen Flow Rate 2 Fraction of Inspired Oxygen ( FIO2) Intake & Output 09/17/16 09/18/16 09/19/16 09/20/16 23:59 23:59 23:59 23:59 Intake Total 999 1907 257 Output Total 20 Balance 999 1907 237 Patient's weight 122.073 kg General: Alert, Oriented x3, Cooperative, No acute distress HEENT: negative: Anicteric Sclera Neck: Normal Trachea alignment, Normal inspection Lymphatics: Normal Respiratory: Normal - CTA Cardiovascular: Regular rate and rhythm, Good Pedal Pulses. negative: LE Edema GI: Normal bowel sounds, Obese, Tenderness (Mid epigastric and right upper quadrant) Extremities/Musculoskeletal: Motor 5/5 throughout. negative: Edema Skin: Warm,Dry and Intact Neurological: Normal Steady Gait, Normal speech Psych/Mental Status: Appropriate, Normal Affect, Cooperative - Assessment (1) Acute cholecystitis Acute K81.0 - ACUTE CHOLECYSTITIS Comment/Plan: Plan is for removal of her gallbladder tomorrow. (2) Type 2 diabetes mellitus with hyperglycemia Acute E11.65 - TYPE 2 DIABETES MELLITUS WITH HYPERGLYCEMIA Qualifiers: Diabetes mellitus mcc insulin use: D Comment/Plan: New diagnosis this admission. Hemoglobin A1c equals 7.8. She may not need medication if she has some lifestyle changes but should probably start metformin after her surgery. Sliding-scale insulin and q.6 hours fingersticks. Teaching material has been given to the patient on diabetes. (3) Elevated blood pressure reading Acute R03.0 - ELEVATED BLOOD-PRESSURE READING, W/O DIAGNOSIS OF HTN Comment/ Plan: Blood pressure is better now her pain is controlled. Will need to follow. She should be on an Leonel inhibitor for renal protection given her history of diabetes. Can start after her surgery (4) RUQ abdominal pain Acute R10.11 - RIGHT UPPER QUADRANT PAIN Comment/Plan: IV pain medication until surgery
[2016-09-20 13:02] VITALS: TEMP 97.9
--- NOTE | 2016-09-20 13:31 | PCM.DCS92 ---
- Final/Secondary Discharge Diagnosis (1) Epigastric abdominal pain Resolved R10.13 - EPIGASTRIC PAIN Present on Admission: Yes (2) RUQ abdominal pain Resolved R10.11 - RIGHT UPPER QUADRANT PAIN Present on Admission: Yes (3) Acute cholecystitis Resolved K81.0 - ACUTE CHOLECYSTITIS Present on Admission: Yes (4) Cholelithiasis Resolved K80.20 - CALCULUS OF GALLBLADDER W/O CHOLECYSTITIS W/O OBSTRUCTION Present on Admission: Yes gallbladder with cholecystitis C acute C without biliary obstruction K80.00 - Calculus of gallbladder with acute cholecystitis without obstruction (5) Hyperglycemia Chronic R73.9 - HYPERGLYCEMIA, UNSPECIFIED Present on Admission: Yes (6) Type 2 diabetes mellitus with hyperglycemia Chronic E11.65 - TYPE 2 DIABETES MELLITUS WITH HYPERGLYCEMIA Present on Admission: Yes D Discharge Disposition: Home Discharge Condition: Stable Cognitive Discharge Status: Unimpaired Fuctional Discharge Status: Independent Physician Follow up/Referrals: None,No Provider [Family Provider] - One Week Santino Ratliff MD [Staff Physician] - Call for Appointment Home Medications/ New Prescriptions: No Action No Home Medications 0 NA DIR #0 info Diet at Discharge: Diabetic, 2200 Calorie Activity: As Tolerated, No Heavy Lifting - DC Summary Notes Hospital Course Note:: Discharge summary on patient named MACY ERICKSON admitted to [facility] on 09/18/16 by Santino Ratliff MD. Date of discharge is 09/20/16. Patient was admitted with acute cholecystitis, also diagnosed with NIDDM. She had cholecystectomy and did well. Will d/c home once follow up for her DM has been arranged. Stable. - Physical Exam Vital Signs: Initial Vitals Temperature 98.4 F 09/18/16 11:11 Pulse Rate 87 09/18/16 11:11 Respiratory Rate 20 09/18/16 11:11 Blood Pressure 183/86 H 09/18/16 11:11 Pulse Oxygen Saturation 96 09/18/16 11:11
[2016-09-20] MEDS: OXYCODONE HCL 5 MG TABLET PO PRN ×2 (13:40→18:32)
[2016-09-20 14:15] VITALS: BP 156/80; PULSE 94
--- NOTE | 2016-09-20 17:12 | GENMEDPROG ---
Subjective Note: Patient initially was quite somnolent after her surgery. She is presently eating some and is more awake. We discussed her diabetes management. Also noted that her blood pressure has been elevated most of this hospitalizations. Her blood pressure was in the 180s with pain but stays in the 140s to 160s at baseline she has had no diagnosis of diabetes or hypertension in the past. Current Medication List: Reviewed Currently: Reports: Abdominal Pain (From incisions), Ambulating (In room). Denies: DORANTES, SOB, Fever/Chills DVT Prophylaxis: Yes - Physical Examination Vital Signs and I&O: Last Vital Signs Temp 97.9 F 09/20/16 12:39 Pulse 94 09/20/16 14:03 Resp 18 09/20/16 14:03 BP 156/80 09/20/16 14:03 Pulse Ox 96 09/20/16 13:39 Oxygen Pulse Oxygen Saturation 96 O2 Device Nasal Cannula Oxygen Flow Rate 2 Fraction of Inspired Oxygen ( FIO2) Intake & Output 09/17/16 09/18/16 09/19/16 09/20/16 23:59 23:59 23:59 23:59 Intake Total 999 1907 257 Output Total 770 Balance 999 1907 -513 Patient's weight 122.073 kg General: Alert, Oriented x3, Cooperative, No acute distress HEENT: negative: Anicteric Sclera Neck: Normal Trachea alignment, Normal inspection Lymphatics: Normal Respiratory: Normal - CTA Cardiovascular: Regular rate and rhythm, Good Pedal Pulses. negative: LE Edema GI: Normal bowel sounds, Obese, Other (Abdomen was minimally palpated because she is just at her gallbladder removed) Extremities/Musculoskeletal: Motor 5/5 throughout. negative: Edema Skin: Warm,Dry and Intact Neurological: Normal Steady Gait, Normal speech Psych/Mental Status: Appropriate, Normal Affect, Cooperative - Assessment (1) Acute cholecystitis Resolved K81.0 - ACUTE CHOLECYSTITIS Comment/Plan: She has had her gallbladder removed. Dr. Ratliff has done the discharge summary. (2) Type 2 diabetes mellitus with hyperglycemia Chronic E11.65 - TYPE 2 DIABETES MELLITUS WITH HYPERGLYCEMIA Qualifiers: Diabetes mellitus emt intermediate insulin use: without emt intermediate use Qualified Code(s): E11.65 - Type 2 diabetes mellitus with hyperglycemia Comment/Plan: Hemoglobin A1c equals 7.8. This is a new diagnosis this admission. She was given diabetes education materials. I will start her on metformin 500 mg p.o. twice daily with meals. At this point I think she should start the medication and some lifestyle modifications before she starts checking blood sugars. Blood sugar management can be further evaluated as an outpatient. (3) Elevated blood pressure reading Acute R03.0 - ELEVATED BLOOD-PRESSURE READING, W/O DIAGNOSIS OF HTN Comment/ Plan: Blood pressure improves with pain control but systolics can still be greater than 140. I will start her on a low-dose of an JONI-inhibitor. She does need follow up with her primary care physician. (4) RUQ abdominal pain Resolved R10.11 - RIGHT UPPER QUADRANT PAIN Comment/Plan: Is on postop pain medication Case Care Discussed with: Patient, Consultants, Family Education/Counseling Given To: Patient, Family Member Education/Counseling Given Regarding: Diagnosis Total Time: 40 minutes Critical Care: No Couseling Time (>50% in counseling/coordination): Yes Code: [id number] (12+)
--- NOTE | 2016-09-20 17:53 | SC.ANESPOS ---
Post-Anesthesia Note LOC: Fully Awake Post-Anesthesia Assessment: Awake, Returned to Baseline, Hemodynamically Stable , Pain Control Adequate Phase I & II Recovery Complete: Yes Apparent Anesthesia Complication: No : N PACU Discharge Time: 12:15 - Vital Signs Blood Pressure: 156/80 Pulse: 94 Resp Rate: 18 O2 Sat: 96 Temp: 97.9 F - Comments Anesthesia Discharge Time Report Time 12:15
[2016-09-20] MEDS: ENOXAPARIN 60 MG/0.6 ML PFS SQ SCH (18:04)
== END 2016-09-20 18:35 | disposition home or self-care (01) | DRG 419 ==
LOC: EDMC 11:07 → MPS3 18:04 → MASU 09-20 10:36
PROVIDERS: ADMIT Surgery; ATTEND Surgery
PROC: BF131ZZ Fluoroscopy of Gallbladder and Bile Ducts using Low Osmolar Contrast (ICD-10-PCS; 2016-09-20)
PROC: 0FT44ZZ Resection of Gallbladder, Percutaneous Endoscopic Approach (ICD-10-PCS; principal; 2016-09-20 09:00)
DX: K80.00 Calculus of gallbladder with acute cholecystitis without obstruction (principal); E11.65 Type 2 diabetes mellitus with hyperglycemia; R03.0 Elevated blood-pressure reading, without diagnosis of hypertension
CPT/HCPCS: 36415; 74177; 74300; 76705; 80048; 80053; 81001; 81025; 82962; 83036; 83690; 85025; 85027; 96361; 96372; 96374; 96375; 96376; 99284; A9698; G0237; J0330; J0694; J1100; J1170; J1650; J2001; J2250; J2270; J2405; J2710; J2765; J3010; J3490; J7060; S0020